=== PATIENT | female | born 1990 | race African-American/Black ===

== ENCOUNTER 2022-07-12 07:54 | Emergency (ER) | payer MEDICAID ==
[~2022-07-12] VITALS: Ht 167.6 cm; Wt 77.3 kg
[2022-07-12 07:56] VITALS: BP 119/73
== END 2022-07-12 09:29 | disposition left against medical advice (07) ==
LOC: EMS 08:09
DX: Z53.21 Procedure and treatment not carried out due to patient leaving prior to being seen by health care provider (principal)